=== PATIENT | male | born 1990 | race African-American/Black ===

== ENCOUNTER 2018-12-27 16:44 | Emergency (ER) | payer OTHER ==
[~2018-12-27] VITALS: Ht 193 cm; Wt 149.7 kg
[2018-12-27 17:40] VITALS: BP 163/84
[2018-12-27] MEDS ORDERED: KETOROLAC 30 MG/ML VIAL. IM STA (18:09)
[2018-12-27] MEDS ORDERED: ORPH100T PO (18:18)
[2018-12-27] MEDS ORDERED: IBUP-1027 PO (18:18)
--- NOTE | 2018-12-27 18:19 | PHYS DOC ---
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 He rates his pain is out of 10 in severity and sharp. He states it hurts more when he stands up. Denies any other complaints. Denies any urinary changes. Denies any sensation changes. Denies any pain go down his legs. Review of Systems Review of Systems Constitutional: Denies fever or chills [] Eyes: Denies change in visual acuity, redness, or eye pain [] HENT: Denies nasal congestion or sore throat [] Respiratory: Denies cough or shortness of breath [] Cardiovascular: No additional information not addressed in HPI [] GI: Denies abdominal pain, nausea, vomiting, bloody stools or diarrhea [] : Denies dysuria or hematuria [] Musculoskeletal: Reports back pain. Integument: Denies rash or skin lesions [] Neurologic: Denies headache, focal weakness or sensory changes [] Endocrine: Denies polyuria or polydipsia [] Complete systems were reviewed and found to be within normal limits, except as documented in this note. Current Medications Current Medications Current Medications Medications (Trade) Dose Ordered Sig/[facility] Start Time Stop Time Status Last Admin Dose Admin Ketorolac Tromethamine (Toradol 30mg Vial) 30 mg 1X STAT 12/27/18 18:09 12/27/18 18:10 UNV Physical Exam Physical Exam Constitutional: Well developed, well nourished, no acute distress, non-toxic appearance. [] HENT: Normocephalic, atraumatic, bilateral external ears normal, oropharynx moist, no oral exudates, nose normal. [] Eyes: PERRLA, EOMI, conjunctiva normal, no discharge. [] Neck: Normal range of motion, no tenderness, supple, no stridor. [] Cardiovascular:Heart rate regular rhythm, no murmur [] Lungs & Thorax: Bilateral breath sounds clear to auscultation [] Abdomen: Bowel sounds normal, soft, no tenderness, no masses, no pulsatile masses. [] Skin: Warm, dry, no erythema, no rash. [] Back: lumbar spinal tenderness. Extremities: No tenderness, no cyanosis, no clubbing, ROM intact, no edema. [] Neurologic: Alert and oriented X 3, normal motor function, normal sensory function, no focal deficits noted. [] Psychologic: Affect normal, judgement normal, mood normal. [] Current Patient Data Vital Signs Vital Signs Date Time Temp Pulse Resp B/P (MAP) Pulse Ox O2 Delivery O2 Flow Rate FiO2 12/27/18 17:40 98.4 92 16 163/84 (110) 97 Room Air 98.4 EKG EKG [] Radiology/Procedures Radiology/Procedures [] Course & Med Decision Making Course & Med Decision Making Pertinent Labs and Imaging studies reviewed. (See chart for details) Will give Toradol and write a script for muscle relaxer. Discussed if pain does not improve in a couple of days to follow up with primary care for an MRI. Dragon Disclaimer Dragon Disclaimer This electronic medical record was generated, in whole or in part, using a voice recognition dictation system. Departure Departure Impression: Primary Impression: Lumbar back pain Disposition: HOME, SELF-CARE Condition: STABLE Referrals: NO PCP (PCP) Patient Instructions: Back Pain, Adult Additional Instructions: Thank you for visiting [facility]. We appreciate you trusting us with your care. If any additional problems come up don't hesitate to return to visit us. Please follow up with your primary care provider so they can plan additional care if needed and know about the problem that you had. If symptoms worsen come back to the Emergency Department. Any concerning symptoms that start such as chest pain, shortness of air, weakness or numbness on one side of the body, running high fevers or any other concerning symptoms return to the ER. Please fill your medications at any pharmacy and follow the prescription instructions. Scripts Orphenadrine Citrate (ORPHENADRINE CITRATE) 100 Mg Tablet.er 100 MG PO BID PRN for MUSCLE SPASMS for 7 Days, #14 TAB.SR Please be aware that this medication may make you drowsy. Do not drive on this medication. Prov: KIANNA ROMANO APRN 12/27/18 Ibuprofen (IBUPROFEN) 400 Mg Tablet 400 MG PO PRN Q6HRS PRN for INFLAMMATION for 7 Days, #28 TAB Prov: KIANNA ROMANO APRN 12/27/18 KIANNA ROMANO APRN Dec 27, 2018 18:19
== END 2018-12-27 18:38 | disposition home or self-care (01) ==
LOC: ER 16:44
DX: M54.5 Low back pain (principal)
CPT/HCPCS: 96372; 99283; J1885